=== PATIENT | female | born 1955 | race Caucasian/White ===

== ENCOUNTER 2021-05-18 04:01 | Inpatient (IN) ==
[~2021-05-18 04:01] MED LIST: Naloxone 0.4 MG/ML INJ IVP PRN
[2021-05-18 04:40] LABS: Hematocrit 38.4 % (35.3-44.9); Hemoglobin 12.9 g/dL (11.5-15.4); Mean Corpuscular HGB Conc 33.6 g/dL (31.6-35.5); Mean Corpuscular Hemoglobin 29.3 pg (28.0-33.3); Mean Corpuscular Volume 87.1 fL (83.0-100.0); Nucleated Red Blood Cells 0.4 /100 WBC (0); Platelet Count 207 K/mcL (140-400); Red Blood Count 4.41 M/mcL (3.82-4.97); Red Cell Distribution Width 14.2 % (11.5-14.5); White Blood Count 13.3 K/mcL (4.3-11.1)
[2021-05-18 04:55] LABS: Alanine Aminotransferase 26 Units/L (7-52); Albumin 2.7 g/dL (3.5-5.7); Albumin/Globulin Ratio 0.7 (1.1-2.2); Alkaline Phosphatase 97 Units/L (34-104); Aspartate Amino Transferase 43 Units/L (13-39); BUN/Creatinine Ratio 43 (6-26); Bilirubin,Total 0.7 mg/dL (0.3-1.0); Blood Urea Nitrogen 22 mg/dL (8-23); Calcium 7.7 mg/dL (8.6-10.3); Carbon Dioxide 22 mEq/L (23-29); Chloride 110 mEq/L (98-107); Globulin 4.1 g/dL (2.4-3.5); Glucose 166 mg/dL (70-105); Magnesium 2.2 mg/dL (1.6-2.6); Osmolality,Calculated 289 (280-300); Phosphorous 3.6 mg/dL (2.7-4.5); Potassium 3.8 mEq/L (3.5-5.1); Sodium 136 mEq/L (136-145); Total Protein 6.8 g/dL (6.4-8.9); eGFR For African Americans > 60 (> 60); eGFR For Non-African Americans > 60 (> 60)
[2021-05-18 05:49] LABS: Lymphocytes # 1.2 K/mcL (0.6-4.6); Monocytes # 0.3 K/mcL (0.0-1.3); Neutrophils # 11.8 K/mcL (1.6-8.9); Platelet Estimate Normal (Normal)
[2021-05-18 05:50] LABS: Reactive Lymphocytes Present (Not Present)
[2021-05-18] MEDS: Nystatin Cream 15 GM TUBE TP SCH ×4 (07:07→20:48)
[2021-05-18] MEDS: Aspirin 81 MG TAB.CHEW PO SCH (10:28)
[2021-05-18] MEDS: amLODIPine 5 MG TABLET PO SCH (10:29)
[2021-05-18] MEDS: *HR* Enoxaparin 100 MG/ML SYRINGE SQ SCH ×2 (10:36→22:57)
[2021-05-18] MEDS: carvediloL 6.25 MG TABLET PO SCH ×2 (10:37→15:52)
[2021-05-18] MEDS ORDERED: Perflutren Lipid Microsphere 1.3 ML in 0.9 % Sodium Chloride 8.7 ML IVP PRN (14:07)
[2021-05-18] MEDS: cefTRIAXone 1,000 MG in 0.9 % Sodium Chloride Mini Bag 100 ML IVPB SCH (15:53)
[2021-05-18] MEDS: Azithromycin 500 MG in 0.9 % Sodium Chloride 250 ML IVPB SCH (15:54)
[2021-05-18] MEDS: Furosemide 20 MG/2 ML VIAL IVP SCH (15:54)
[2021-05-18] MEDS: Ipratropium 1 PUFF INHALER IH SCH ×3 (16:54→23:32)
[2021-05-19] MEDS: Ipratropium 1 PUFF INHALER IH SCH ×6 (03:54→23:41)
[2021-05-19] MEDS: lisinopriL 5 MG TABLET PO SCH (09:45)
[2021-05-19] MEDS: Furosemide 20 MG/2 ML VIAL IVP SCH (09:45)
[2021-05-19] MEDS: carvediloL 6.25 MG TABLET PO SCH ×2 (09:45→17:51)
[2021-05-19] MEDS: Aspirin 81 MG TAB.CHEW PO SCH (09:45)
[2021-05-19] MEDS: Nystatin Cream 15 GM TUBE TP SCH ×3 (09:45→22:13)
[2021-05-19] MEDS: amLODIPine 5 MG TABLET PO SCH (09:45)
[2021-05-19] MEDS: *HR* Enoxaparin 100 MG/ML SYRINGE SQ SCH ×2 (09:55→22:11)
[2021-05-19] MEDS: Azithromycin 500 MG in 0.9 % Sodium Chloride 250 ML IVPB SCH (14:31)
[2021-05-19] MEDS: cefTRIAXone 1,000 MG in 0.9 % Sodium Chloride Mini Bag 100 ML IVPB SCH (14:32)
[2021-05-19] MEDS: *HR* OxyCODONE/APAP 5/325 TABLET PO PRN (17:50)
[2021-05-20] MEDS: Ipratropium 1 PUFF INHALER IH SCH ×6 (03:49→23:42)
[2021-05-20 07:32] LABS: Hematocrit 38.6 % (35.3-44.9); Hemoglobin 12.8 g/dL (11.5-15.4); Mean Corpuscular HGB Conc 33.2 g/dL (31.6-35.5); Mean Corpuscular Hemoglobin 29.4 pg (28.0-33.3); Mean Corpuscular Volume 88.7 fL (83.0-100.0); Mean Platelet Volume 10.1 fL (9.4-12.4); Platelet Count 335 K/mcL (140-400); Red Blood Count 4.35 M/mcL (3.82-4.97); Red Cell Distribution Width 13.8 % (11.5-14.5); White Blood Count 17.7 K/mcL (4.3-11.1)
[2021-05-20 07:45] LABS: Fibrinogen 295 mg/dL (169-393)
[2021-05-20 07:53] LABS: Alanine Aminotransferase 32 Units/L (7-52); Albumin 2.9 g/dL (3.5-5.7); Albumin/Globulin Ratio 0.8 (1.1-2.2); Alkaline Phosphatase 89 Units/L (34-104); Aspartate Amino Transferase 33 Units/L (13-39); BUN/Creatinine Ratio 51 (6-26); Bilirubin,Total 0.6 mg/dL (0.3-1.0); Blood Urea Nitrogen 27 mg/dL (8-23); Carbon Dioxide 24 mEq/L (23-29); Chloride 103 mEq/L (98-107); Globulin 3.7 g/dL (2.4-3.5); Glucose 195 mg/dL (70-105); Lactate Dehydrogenase 392 Units/L (140-271); Osmolality,Calculated 290 (280-300); Potassium 3.9 mEq/L (3.5-5.1); Sodium 135 mEq/L (136-145); Total Protein 6.6 g/dL (6.4-8.9); eGFR For African Americans > 60 (> 60); eGFR For Non-African Americans > 60 (> 60)
[2021-05-20 08:11] LABS: Ferritin 781 ng/mL (10-120)
[2021-05-20 08:15] LABS: D-Dimer 11893 ng/mLFEU (0-500)
[2021-05-20] MEDS: Nystatin Cream 15 GM TUBE TP SCH ×3 (08:30→20:59)
[2021-05-20] MEDS: amLODIPine 5 MG TABLET PO SCH (10:22)
[2021-05-20] MEDS: lisinopriL 5 MG TABLET PO SCH (10:22)
[2021-05-20] MEDS: Aspirin 81 MG TAB.CHEW PO SCH (10:22)
[2021-05-20] MEDS: Furosemide 20 MG/2 ML VIAL IVP SCH (10:23)
[2021-05-20] MEDS: *HR* Enoxaparin 100 MG/ML SYRINGE SQ SCH ×2 (10:23→17:50)
[2021-05-20] MEDS: carvediloL 6.25 MG TABLET PO SCH ×2 (10:28→17:46)
[2021-05-20 10:34] LABS: C-Reactive Protein 30 mg/L (Less than 10)
[2021-05-20 12:54] LABS: Lymphocytes # 1.8 K/mcL (0.6-4.6); Monocytes # 1.1 K/mcL (0.0-1.3); Neutrophils # 14.5 K/mcL (1.6-8.9); Platelet Estimate Normal (Normal); Reactive Lymphocytes Present (Not Present)
[2021-05-20] MEDS ORDERED: Isovue-370 500 ML BOTTLE IVP ONE (14:10)
[2021-05-20 16:56] LABS: INR 1.1
[2021-05-20] MEDS: cefTRIAXone 1,000 MG in 0.9 % Sodium Chloride Mini Bag 100 ML IVPB SCH (17:47)
[2021-05-20] MEDS: Azithromycin 500 MG in 0.9 % Sodium Chloride 250 ML IVPB SCH (17:47)
[2021-05-20] MEDS ORDERED: Warfarin perPT PO PRN (18:00)
[2021-05-20] MEDS ORDERED: *HR* Warfarin 5 MG TABLET PO ONE (18:00)
[2021-05-20] MEDS: Melatonin 3 MG TABLET PO PRN (20:54)
[2021-05-20] MEDS ORDERED: Apixaban 5 MG TABLET PO SCH (21:00)
[2021-05-21] MEDS: Ipratropium 1 PUFF INHALER IH SCH ×5 (04:21→20:52)
[2021-05-21] MEDS: *HR* Enoxaparin 100 MG/ML SYRINGE SQ SCH ×2 (04:57→18:27)
[2021-05-21 06:40] LABS: Basophils # 0.1 K/mcL (0.0-0.2); Basophils % 0.7 %; Hematocrit 41.5 % (35.3-44.9); Hemoglobin 13.2 g/dL (11.5-15.4); Lymphocytes # 2.1 K/mcL (0.6-4.6); Lymphocytes % 11.7 %; Mean Corpuscular HGB Conc 31.8 g/dL (31.6-35.5); Mean Corpuscular Hemoglobin 28.6 pg (28.0-33.3); Monocytes # 1.3 K/mcL (0.0-1.3); Neutrophils # 13.2 K/mcL (1.6-8.9); Platelet Count 363 K/mcL (140-400); Red Blood Count 4.61 M/mcL (3.82-4.97); Red Cell Distribution Width 13.8 % (11.5-14.5); Segmented Neutrophils % 73.6 %; White Blood Count 17.9 K/mcL (4.3-11.1)
[2021-05-21 06:45] LABS: INR 1.1; Prothrombin Time 12.2 Seconds (9.4-12.1)
[2021-05-21 07:18] LABS: Alanine Aminotransferase 36 Units/L (7-52); Albumin/Globulin Ratio 0.8 (1.1-2.2); Alkaline Phosphatase 91 Units/L (34-104); Aspartate Amino Transferase 25 Units/L (13-39); BUN/Creatinine Ratio 49 (6-26); Bilirubin,Total 0.6 mg/dL (0.3-1.0); Blood Urea Nitrogen 28 mg/dL (8-23); Calcium 8.3 mg/dL (8.6-10.3); Carbon Dioxide 23 mEq/L (23-29); Chloride 102 mEq/L (98-107); Ferritin 636 ng/mL (10-120); Globulin 3.7 g/dL (2.4-3.5); Glucose 261 mg/dL (70-105); Lactate Dehydrogenase 372 Units/L (140-271); Osmolality,Calculated 295 (280-300); Potassium 4.4 mEq/L (3.5-5.1); Sodium 135 mEq/L (136-145); Total Protein 6.7 g/dL (6.4-8.9); eGFR For African Americans > 60 (> 60); eGFR For Non-African Americans > 60 (> 60)
[2021-05-21 07:22] LABS: Polychromasia 1+ (Not Present)
[2021-05-21 07:23] LABS: Anisocytosis 1+ (Not Present); Reactive Lymphocytes Present (Not Present)
[2021-05-21] MEDS: Nystatin Cream 15 GM TUBE TP SCH ×3 (10:00→22:22)
[2021-05-21] MEDS: Furosemide 20 MG/2 ML VIAL IVP SCH (10:14)
[2021-05-21] MEDS: lisinopriL 5 MG TABLET PO SCH (10:14)
[2021-05-21] MEDS: amLODIPine 5 MG TABLET PO SCH (10:14)
[2021-05-21] MEDS: carvediloL 6.25 MG TABLET PO SCH ×2 (10:14→18:27)
[2021-05-21] MEDS: Aspirin 81 MG TAB.CHEW PO SCH (10:15)
[2021-05-21 10:49] LABS: C-Reactive Protein 18 mg/L (Less than 10)
[2021-05-21] MEDS ORDERED: *HR* Metoprolol 5 MG/5 ML VIAL IVP ONE (14:05)
[2021-05-21] MEDS ORDERED: *HR* Warfarin 2.5 MG TABLET PO ONE (18:00)
[2021-05-21] MEDS: Azithromycin 500 MG in 0.9 % Sodium Chloride 250 ML IVPB SCH (18:26)
[2021-05-21] MEDS: cefTRIAXone 1,000 MG in 0.9 % Sodium Chloride Mini Bag 100 ML IVPB SCH (18:26)
[2021-05-21] MEDS: Melatonin 3 MG TABLET PO PRN (22:22)
[2021-05-21] MEDS: *HR* OxyCODONE/APAP 5/325 TABLET PO PRN (22:22)
[2021-05-22] MEDS: Ipratropium 1 PUFF INHALER IH SCH ×6 (00:31→20:24)
[2021-05-22] MEDS: *HR* Enoxaparin 100 MG/ML SYRINGE SQ SCH ×2 (05:17→17:38)
[2021-05-22 05:54] LABS: INR 1.1; Prothrombin Time 12.7 Seconds (9.4-12.1)
[2021-05-22] MEDS: lisinopriL 5 MG TABLET PO SCH (09:55)
[2021-05-22] MEDS: amLODIPine 5 MG TABLET PO SCH (09:55)
[2021-05-22] MEDS: Aspirin 81 MG TAB.CHEW PO SCH (09:56)
[2021-05-22] MEDS: Furosemide 20 MG/2 ML VIAL IVP SCH (09:56)
[2021-05-22] MEDS: Nystatin Cream 15 GM TUBE TP SCH ×3 (09:56→21:55)
[2021-05-22] MEDS: carvediloL 6.25 MG TABLET PO SCH ×2 (10:25→17:37)
[2021-05-22] MEDS: cefTRIAXone 1,000 MG in 0.9 % Sodium Chloride Mini Bag 100 ML IVPB SCH (16:11)
[2021-05-22] MEDS: Azithromycin 500 MG in 0.9 % Sodium Chloride 250 ML IVPB SCH (16:21)
[2021-05-22] MEDS ORDERED: *HR* Warfarin 2.5 MG TABLET PO ONE (18:00)
[2021-05-22] MEDS: Melatonin 3 MG TABLET PO PRN (21:55)
[2021-05-22] MEDS: *HR* OxyCODONE/APAP 5/325 TABLET PO PRN (21:55)
[2021-05-23] MEDS: Ipratropium 1 PUFF INHALER IH SCH ×6 (00:29→19:45)
[2021-05-23 03:36] LABS: C-Reactive Protein < 5 mg/L (Less than 10); Lactate Dehydrogenase 323 Units/L (140-271)
[2021-05-23 03:41] LABS: INR 1.1; Prothrombin Time 12.3 Seconds (9.4-12.1)
[2021-05-23 03:51] LABS: Ferritin 594 ng/mL (10-120)
[2021-05-23] MEDS: *HR* Enoxaparin 100 MG/ML SYRINGE SQ SCH ×2 (05:02→17:08)
[2021-05-23] MEDS: Aspirin 81 MG TAB.CHEW PO SCH (09:58)
[2021-05-23] MEDS: amLODIPine 5 MG TABLET PO SCH (09:58)
[2021-05-23] MEDS: lisinopriL 5 MG TABLET PO SCH (09:58)
[2021-05-23] MEDS: Nystatin Cream 15 GM TUBE TP SCH ×3 (10:00→20:09)
[2021-05-23] MEDS: Furosemide 20 MG/2 ML VIAL IVP SCH (10:00)
[2021-05-23] MEDS: carvediloL 6.25 MG TABLET PO SCH ×2 (10:28→17:08)
[2021-05-23] MEDS ORDERED: *HR* Warfarin 5 MG TABLET PO ONE (18:00)
[2021-05-24] MEDS: Ipratropium 1 PUFF INHALER IH SCH ×7 (00:19→23:45)
[2021-05-24] MEDS: *HR* Enoxaparin 100 MG/ML SYRINGE SQ SCH ×2 (05:32→18:33)
[2021-05-24 06:54] LABS: INR 1.2; Prothrombin Time 13.8 Seconds (9.4-12.1)
[2021-05-24] MEDS: Furosemide 20 MG/2 ML VIAL IVP SCH (10:52)
[2021-05-24] MEDS: Aspirin 81 MG TAB.CHEW PO SCH (10:52)
[2021-05-24] MEDS: carvediloL 6.25 MG TABLET PO SCH ×2 (10:52→18:35)
[2021-05-24] MEDS: amLODIPine 5 MG TABLET PO SCH (10:52)
[2021-05-24] MEDS: lisinopriL 5 MG TABLET PO SCH (10:53)
[2021-05-24] MEDS: Nystatin Cream 15 GM TUBE TP SCH ×3 (10:53→21:57)
[2021-05-24] MEDS ORDERED: *HR* Warfarin 5 MG TABLET PO ONE (18:00)
[2021-05-25 03:54] LABS: INR 1.3; Prothrombin Time 14.1 Seconds (9.4-12.1)
[2021-05-25] MEDS: Ipratropium 1 PUFF INHALER IH SCH ×6 (04:01→23:42)
[2021-05-25] MEDS: *HR* Enoxaparin 100 MG/ML SYRINGE SQ SCH ×2 (06:08→17:31)
[2021-05-25] MEDS: Aspirin 81 MG TAB.CHEW PO SCH (08:40)
[2021-05-25] MEDS: lisinopriL 5 MG TABLET PO SCH (08:41)
[2021-05-25] MEDS: amLODIPine 5 MG TABLET PO SCH (08:41)
[2021-05-25] MEDS: carvediloL 6.25 MG TABLET PO SCH ×2 (08:41→17:31)
[2021-05-25] MEDS: Furosemide 20 MG/2 ML VIAL IVP SCH (08:41)
[2021-05-25] MEDS: Nystatin Cream 15 GM TUBE TP SCH ×3 (08:42→20:22)
[2021-05-25] MEDS ORDERED: *HR* Warfarin 3 MG TABLET PO ONE (18:00)
[2021-05-26] MEDS: Ipratropium 1 PUFF INHALER IH SCH ×3 (04:18→11:52)
[2021-05-26 05:38] LABS: INR 1.7; Prothrombin Time 18.6 Seconds (9.4-12.1)
[2021-05-26] MEDS: *HR* Enoxaparin 100 MG/ML SYRINGE SQ SCH (05:48)
[2021-05-26] MEDS: carvediloL 6.25 MG TABLET PO SCH (08:08)
[2021-05-26] MEDS: Aspirin 81 MG TAB.CHEW PO SCH (08:08)
[2021-05-26] MEDS: lisinopriL 5 MG TABLET PO SCH (08:08)
[2021-05-26] MEDS: amLODIPine 5 MG TABLET PO SCH (08:08)
[2021-05-26] MEDS: Furosemide 20 MG/2 ML VIAL IVP SCH (08:09)
[2021-05-26] MEDS: Nystatin Cream 15 GM TUBE TP SCH (08:09)
[2021-05-26 10:53] VITALS: BP 120/76; PULSE 85; TEMP 98.1
[2021-05-26 11:56] VITALS: O2SAT 94
[2021-05-26] MEDS ORDERED: *HR* Warfarin 5 MG TABLET PO ONE (18:00)
== END 2021-05-26 15:35 | disposition home or self-care (01) | DRG 871 ==
LOC: 3NENU → SUATTDRO 04:01
PROVIDERS: ADMIT Internal Medicine; ATTEND Hospitalist